=== PATIENT | female | born 1955 | race Caucasian/White ===

== ENCOUNTER 2017-04-03 09:47 | Emergency (ER) | payer OTHER, BC ==
[2017-04-03] MEDS ORDERED: ACETAMINOPHEN 500 MG TABLET PO ONE (10:22)
--- NOTE | 2017-04-03 10:22 | ERNOTE ---
Back Pain ER HPI Date of Service: 04/03/17 Presenting Symptoms: injury/pain to back Time Seen by Provider: 04/03/17 10:20 Source: patient, RN notes reviewed Exam Limitations: no limitations Allergies/Adverse Reactions: Allergies No Known Allergies Allergy (Verified 04/03/17 10:13) Home Medications: HOME MEDICATIONS Lisinopril/Hydrochlorothiazide [Zestoretic 10-12.5 mg Tablet] 1 tab PO DAILY [Last Taken Unknown] Cyclobenzaprine HCl [Flexeril] 10 mg PO TID PRN #20 tab 04/03/17 [Last Taken Unknown] Narrative: 61 y/o female sent to the ED after being evaluated for a fall that occurred 2 days ago and being found to have an elevated blood pressure at that time. She works at [employer] and slipped on a lid 2 days ago, causing the fall. She reports pain in her right shoulder region and lower back that radiates down her right leg. She has been on blood pressure medication for several years and reports that it has been well controlled except for an occasional high reading. She reports that it is not uncommon for her BP to be up when she is having pain. Quality/Severity: Reports: moderate, aching Location of pain: Reports: upper back, lower back, radiating to rt thigh/leg Activities at Onset: Reports: other - Fall Recent Injury?: Reports: yes Possible Precipitating Factor: Reports: fall/near fall Associated Symptoms: Denies: fever/chills, sweating, constipation/incontinence, nausea/vomiting, problems urinating, difficulty walking, lightheadedness, numbess/weakness in legs Prior Treament: Denies: recently seen, similar symptoms before Review of Systems - Review of Systems Constitutional: Absent: recent illness, fever EYE: Present: no symptoms reported ENT: Present: no symptoms reported Respiratory: Absent: shortness of breath, cough Cardiology: Absent: chest pain, palpitations, syncope, edema Gastrointestinal/Abdominal: Absent: abdominal pain Genitourinary: Present: no symptoms reported Musculoskeletal: Present: back pain, muscle pain. Absent: neck pain, joint pain , joint swelling Skin: Absent: rash, lesions, lumps Neurological: Absent: headache, dizziness/light-headedness, weakness, numbness, tingling Endocrine: Present: no symptoms reported Hematologic/Lymphatic: Absent: easy bruising, easy bleeding Psych: Absent: anxiety, depressed - Patient's Past Medical History Patient History - Medical: No pertinent hx Patient History - Cardiac/Respiratory: Hypertension Patient History - Cancer: No Hx of Cancer Patient History - Surgical Procedures: Other Patient History - Other: None - Family History Mother Family History - Medical: Family History - Cancer: Rectal Father Family History - Medical: - Social History Living Situations: home Abuse History: No History of abuse Psych History: No pertinent hx Smoking Status: Never smoker Have you smoked in the past 12 months: No Do you dip or chew tobacco: No Alcohol Use: none Drug Use: none Physical Exam - Physical Exam General Appearance: Present: wd/wn, alert, no apparent distress Head Exam: Present: normal inspection, no evidence of injury Eye Exam: Normal inspection: bilateral Neck: Present: normal inspection, nontender, supple, full range of motion Respiratory: Present: no respiratory distress, normal breath sounds, no accessory muscle use, lungs clear Cardiovascular/Chest: Present: regular rate, rhythm, no murmur, normal peripheral pulses Back Exam: Present: normal range of motion, no CVA tenderness, no vertebral tenderness, other - mild tenderness in right upper back/shoulder region and right lumbar region. Absent: muscle spasm Extremity Exam: Present: normal inspection, non-tender, normal range of motion, no edema Neurological Exam: Present: alert, oriented, normal mood/affect, no motor/ sensory deficits DTR: N=norm/NB=norm/brisk/A=abs/DD=dull/dimin/HC=hyperactive: Knee (R): Normal/ Brisk, Knee (L): Normal/Brisk Skin Exam: Present: normal color, warm/dry ED Progress - Vital Signs Patient's Vital Signs:: I have reviewed the patient's vital signs. Vital Signs: Vital Signs 04/03/17 10:07 Temperature 36.5 C Pulse Rate 68 Respiratory 14 Rate Blood Pressure 184/108 O2 Sat by Pulse 95 Oximetry - Progress/Reassessment Chief Complaint: Back Pain Progress:: Improved Progress Note-Subjective: 04/03/17 10:45 Patient only wants Tylenol for pain, BP remains elevated but patient reports having occasional elevated BP readings in the past - particularly if she is in pain. Feels that she is able to return to work without restrictions and does not want to be scheduled for f/u for the injury. To see PCP to have BP evaluated when her pain has improved. Departure Clinical Impression: Elevated blood pressure reading with diagnosis of hypertension Fall Qualifiers: Encounter type: initial encounter Qualified Code(s): W19.XXXA - Unspecified fall, initial encounter Back pain Qualifiers: Back pain location: back pain in unspecified location Chronicity: acute Back pain laterality: right Qualified Code(s): M54.9 - Dorsalgia, unspecified - Departure Disposition: Home Follow Up Needed Condition: Good Instructions: Back Pain, Adult Additional Instructions: Tylenol and/or ibuprofen for pain Muscle relaxant will likely cause drowsiness See you PCP to evaluate your blood pressure when you pain has improved Referrals: Arabella Raya ARNP [Primary Care Provider] - Prescriptions: Cyclobenzaprine HCl [Flexeril] 10 mg PO TID PRN #20 tab PRN Reason: MUSCLE SPASMS
[2017-04-03 11:02] VITALS: BP 185/97
== END 2017-04-03 11:00 | disposition home or self-care (01) ==
LOC: ER 09:47
DX: R03.0 Elevated blood-pressure reading, without diagnosis of hypertension (principal); M54.9 Dorsalgia, unspecified; W01.0XXA Fall on same level from slipping, tripping and stumbling without subsequent striking against object, initial encounter; Y93.9 Activity, unspecified; Y92.149 Unspecified place in prison as the place of occurrence of the external cause; Y99.0 Civilian activity done for income or pay